=== PATIENT | female | born 1990 | race Hispanic/Latino ===

== ENCOUNTER 2017-08-25 11:09 | Emergency (ER) | payer BC ==
[2017-08-25 11:12] VITALS: BMI 36.3
[2017-08-25 11:15] VITALS: RESP 20
[2017-08-25] MEDS ORDERED: Sodium Chloride 0.9% 1,000 ML IV ONE (12:01)
--- NOTE | 2017-08-25 12:28 | C.PDOC ---
History Of Present Illness 26 y/o female w/o significant PMHx comes in for evaluation of abdominal pain gradually worsening for 4 days. Pain is localized to the suprapubic region and right lower quadrant and associated with nausea. No change in pain with food intake. Otherwise pt denies fever, chills, chest pain, SOB, palpitation, vomiting, diarrhea, dysuria, frequency, incontinence, or blood in the stool or urine. Ambulate to ED for evaluation, not in any apparent distress. Time Seen by Provider: 08/25/17 11:19 Chief Complaint (Nursing): Abdominal Pain History Per: Patient History/Exam Limitations: no limitations Onset/Duration Of Symptoms: Days (x4) Current Symptoms Are (Timing): Still Present Location Of Pain/Discomfort: RLQ, Suprapubic Associated Symptoms: Nausea Past Medical History Reviewed: Historical Data, Nursing Documentation, Vital Signs Vital Signs: Last Vital Signs Temp 99.4 F 08/25/17 11:12 Pulse 74 08/25/17 13:46 Resp 20 08/25/17 13:46 BP 118/79 08/25/17 13:46 Pulse Ox 99 08/25/17 15:57 - Medical History PMH: No Chronic Diseases Surgical History: Tonsillectomy Family History: States: No Known Family Hx - Social History Hx Tobacco Use: No Hx Alcohol Use: No Hx Substance Use: No - Immunization History Hx Tetanus Toxoid Vaccination: No Hx Influenza Vaccination: No Hx Pneumococcal Vaccination: No Review Of Systems Except As Marked, All Systems Reviewed And Found Negative. Constitutional: Negative for: Fever, Chills Cardiovascular: Negative for: Chest Pain Respiratory: Negative for: Shortness of Breath Gastrointestinal: Positive for: Nausea, Abdominal Pain. Negative for: Vomiting , Diarrhea, Hematochezia Genitourinary: Negative for: Dysuria, Frequency, Incontinence, Hematuria Physical Exam - Physical Exam Appears: Well, Non-toxic, No Acute Distress Skin: Normal Color, Warm, No Rash Head: Normacephalic Eye(s): bilateral: PERRL Throat: No Erythema Neck: Trachea Midline, No Midline Cervical Tenderness, No Paracervical Tenderness, Supple Chest: Symmetrical, No Deformity, No Tenderness Cardiovascular: Rhythm Regular, No Murmur Respiratory: No Decreased Breath Sounds, No Accessory Muscle Use, No Rales, No Rhonchi, No Wheezing Gastrointestinal/Abdominal: Soft, Tenderness (to right lower quadrant), No Distention, No Guarding, No Rebound Back: No CVA Tenderness Extremity: Normal ROM, No Deformity, No Swelling Extremity: Bilateral: Atraumatic, Normal Color And Temperature, Normal ROM Neurological/Psych: Oriented x3, Normal Speech ED Course And Treatment - Laboratory Results Result Diagrams: 08/25/17 12:37 08/25/17 12:37 Lab Interpretation: No Acute Changes Urine POC: Negative O2 Sat by Pulse Oximetry: 99 (RA) Pulse Ox Interpretation: Normal - CT Scan/US CT A/P Other Rad Studies (CT/US): Read By Radiologist, Radiology Report Reviewed CT/US Interpretation: Accession No. : [id number]. Patient Name / ID : HARJEET CAMPBELL / [id number]. Exam Date : 08/25/2017 14:58:28 ( Approved ). Study Comment : Sex / Age : F / 26Y. Creator : Gasper Lorenzana MD. Dictator : Gasper Lorenzana MD. Prop Attendant : Music Historian : Gasper Lorenzana MD. Approver2 : Report Date : 08/25/2017 15:51:04. My Comment : . PROCEDURE: CT Abdomen and Pelvis with intravenous contrast. HISTORY: Right lower quadrant abdominal pain. COMPARISON: None. TECHNIQUE: Multiple contiguous axial images were performed through the abdomen and pelvis with the use of intravenous contrast. Subsequently, sagittal and coronal reformatted images were obtained. Radiation dose: Total exam DLP = 1190 mGy-cm. This CT exam was performed using one or more of the following dose reduction techniques: Automated exposure control, adjustment of the mA and/or kV according to patient size, and/or use of iterative reconstruction technique. FINDINGS: LOWER THORAX : 2 millimeter subpleural nodular density along the anterior aspect of the right middle lobe. Mild bibasilar atelectasis. LIVER: Focal area of low attenuation within the medial right hepatic lobe on series 4, image 46 measuring 1.2 centimeters. This is of uncertain clinical etiologyand may represent focal fatty infiltration. Correlation with multiphasic CT or MR may be helpful for further evaluation if clinically indicated. GALLBLADDER AND BILE DUCTS: Unremarkable. PANCREAS: Unremarkable. No gross lesion or ductal dilatation. SPLEEN: Unremarkable. Splenule. ADRENALS: Unremarkable. No mass. KIDNEYS AND URETERS: Unremarkable. No hydronephrosis. No solid mass. VASCULATURE: Unremarkable. No aortic aneurysm. BOWEL: Mild thickening of the medial aspect of the cecum. Underdistended sigmoid colon. Fecal retention in the colon. APPENDIX: Grossly preserved. PERITONEUM: Unremarkable. No free fluid. No free air. LYMPH NODES: Prominent mesenteric lymph nodes seen within the right hemiabdomen and right lower abdomen; for example, on series 4, image 101 in the right ibrahima abdomen measuring 2.5 centimeters and more inferiorly measuring 1.9 centimeters. Multiple prominent lymph nodes adjacent to the cecum. This may represent a prominent mesenteric adenitis. BLADDER: Underdistended urinary bladder. REPRODUCTIVE: Unremarkable. BONES: No acute fracture. OTHER FINDINGS: None. IMPRESSION: 1. Prominent mesenteric lymph nodes seen within the right hemiabdomen and right lower abdomen; for example, on series 4, image 101 in the right ibrahima abdomen measuring 2.5 centimeters and more inferiorly measuring 1.9 centimeters. Multiple prominent lymph nodes adjacent to the cecum. This may represent a prominent mesenteric adenitis. 2. Appendix grossly preserved. 3. Mild thickening of the medial aspect of the cecum. Clinical correlation. 4. Underdistended and or mildly thickened urinary bladder. 5. Focal area of low attenuation within the medial right hepatic lobe on series 4, image 46 measuring 1.2 centimeters. This is of uncertain clinical etiology and may represent focal fatty infiltration. Correlation with multiphasic CT or MR may be helpful for further evaluation if clinically indicated. Additional findings as above. Progress Note: Blood work and urine sent. Patient started on IV fluids and Toradol. Pending CT A/P with IV contrast. Pt was OBS in ED for 5 hours. Delay due to CT delay. On re-evaluation, pt reports moderate improvement in pain. Pt is afebrile, hemodynamicaly stable. Non-toxic. Tolerate Po well in ED. ENT : no acute finidgs. Neck: Supple, (-) meningeal sign. Lungs: CTA B/L, BS equla B/L. CVS: (+)S1S2, reg. Abd: benign, (-) guarding, (-) rebound, (-) localized tenderness. Back: (-) CVA tenderness. Neurologicaly intact. Blood work review, appears normal. CT abd/pelvis review (+) mesenteric adenitis, no acute findings. Pt has clinical findings c/w mesenteric adenitis. Pt advised. ref. to F/u with PMD, GI in 2-3 days for re-evaluation. return to ED if any worsening or new changes. Disposition Counseled Patient/Family Regarding: Studies Performed, Diagnosis, Need For Followup, Rx Given - Disposition Referrals: [facility] [Outside] Isaac Wilkes MD [Staff Provider] - Disposition: HOME/ ROUTINE Disposition Time: 15:57 Condition: STABLE Additional Instructions: Encourage fluids BRAT diet- banana, rice, apple sauce, toast Follow up with PMD, GI in 2-3 days for re-evaluation. return to ED if any worsening or new changes. 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 - Scribe Statement The provider has reviewed the documentation as recorded by the Scribe (Vanessa Hilton) All medical record entries made by the Scribe were at my direction and personally dictated by me. I have reviewed the chart and agree that the record accurately reflects my personal performance of the history, physical exam, medical decision making, and the department course for this patient. I have also personally directed, reviewed, and agree with the discharge instructions and disposition.
[2017-08-25 12:42] LABS: BASO # 0.1 K/uL (0.0-0.2); EOS # 0.2 K/uL (0.0-0.7); EOS % 1.4 % (0.0-4.0); HEMOGLOBIN 13.9 g/dL (11.0-16.0); LYMPH % 25.2 % (20.0-40.0); MEAN CELL VOLUME 81.7 fL (81.0-99.0); MEAN CORPUSCULAR HEMOGLOBIN 28.7 pg (27.0-31.0); MEAN CORPUSCULAR HGB CONC 35.1 g/dL (33.0-37.0); MEAN PLATELET VOLUME 8.2 fL (7.2-11.7); MONO # 0.8 K/uL (0.0-0.8); MONO % 6.6 % (0.0-10.0); NEUT # 7.9 K/uL (1.8-7.0); NEUT % 65.8 % (50.0-75.0); RBC 4.87 Mil/uL (3.80-5.20)
[2017-08-25 12:43] LABS: HCG,QUALITATIVE URINE NEGATIVE (NEGATIVE)
[2017-08-25 12:48] LABS: SQUAMOUS EPITHIAL 7 /hpf (0-5); URINE BACTERIA RARE (<OCC); URINE BILIRUBIN NEGATIVE (NEGATIVE); URINE BLOOD NEGATIVE (NEGATIVE); URINE CLARITY Hazy (Clear); URINE COLOR Yellow (YELLOW); URINE GLUCOSE (UA) NORMAL (Normal); URINE LEUKOCYTE ESTERASE NEG Leu/uL (Negative); URINE PROTEIN NEGATIVE (NEGATIVE); URINE UROBILINOGEN NORMAL mg/dL (0.2-1.0)
[2017-08-25 13:04] LABS: ALB/GLOB RATIO 1.5 (1.0-2.1); ALBUMIN 4.5 g/dL (3.5-5.0); ALT/SGPT 47 U/L (9-52); AST/SGOT 62 U/L (14-36); BLOOD UREA NITROGEN 11 mg/dL (7-17); GFR AFRICAN-AMERICAN > 60; GFR NON-AFRICAN AMERICAN > 60; LIPASE 136 U/L (23-300)
[2017-08-25] MEDS ORDERED: Iodixanol 320 MG/ML 100 ML BOTTLE IV ONE (14:49)
--- NOTE | 2017-08-25 15:52 | CT ---
PROCEDURE: CT Abdomen and Pelvis with intravenous contrast HISTORY: Right lower quadrant abdominal pain COMPARISON: None. TECHNIQUE: Multiple contiguous axial images were performed through the abdomen and pelvis with the use of intravenous contrast. Subsequently, sagittal and coronal reformatted images were obtained. Radiation dose: Total exam DLP = 1190 mGy-cm. This CT exam was performed using one or more of the following dose reduction techniques: Automated exposure control, adjustment of the mA and/or kV according to patient size, and/or use of iterative reconstruction technique. FINDINGS: LOWER THORAX: 2 millimeter subpleural nodular density along the anterior aspect of the right middle lobe. Mild bibasilar atelectasis. LIVER: Focal area of low attenuation within the medial right hepatic lobe on series 4, image 46 measuring 1.2 centimeters. This is of uncertain clinical etiologyand may represent focal fatty infiltration. Correlation with multiphasic CT or MR may be helpful for further evaluation if clinically indicated. GALLBLADDER AND BILE DUCTS: Unremarkable. PANCREAS: Unremarkable. No gross lesion or ductal dilatation. SPLEEN: Unremarkable. Splenule. ADRENALS: Unremarkable. No mass. KIDNEYS AND URETERS: Unremarkable. No hydronephrosis. No solid mass. VASCULATURE: Unremarkable. No aortic aneurysm. BOWEL: Mild thickening of the medial aspect of the cecum. Underdistended sigmoid colon. Fecal retention in the colon. APPENDIX: Grossly preserved. PERITONEUM: Unremarkable. No free fluid. No free air. LYMPH NODES: Prominent mesenteric lymph nodes seen within the right hemiabdomen and right lower abdomen; for example, on series 4, image 101 in the right ibrahima abdomen measuring 2.5 centimeters and more inferiorly measuring 1.9 centimeters. Multiple prominent lymph nodes adjacent to the cecum. This may represent a prominent mesenteric adenitis. BLADDER: Underdistended urinary bladder. REPRODUCTIVE: Unremarkable. BONES: No acute fracture. OTHER FINDINGS: None. IMPRESSION: 1. Prominent mesenteric lymph nodes seen within the right hemiabdomen and right lower abdomen; for example, on series 4, image 101 in the right ibrahima abdomen measuring 2.5 centimeters and more inferiorly measuring 1.9 centimeters. Multiple prominent lymph nodes adjacent to the cecum. This may represent a prominent mesenteric adenitis. 2. Appendix grossly preserved. 3. Mild thickening of the medial aspect of the cecum. Clinical correlation. 4. Underdistended and or mildly thickened urinary bladder. 5. Focal area of low attenuation within the medial right hepatic lobe on series 4, image 46 measuring 1.2 centimeters. This is of uncertain clinical etiology and may represent focal fatty infiltration. Correlation with multiphasic CT or MR may be helpful for further evaluation if clinically indicated. Additional findings as above.
[2017-08-25 16:32] VITALS: BP 119/77; PULSE 87; TEMP 98.6
[2017-08-25 16:35] VITALS: O2SAT 99
== END 2017-08-25 16:30 | disposition home or self-care (01) ==
LOC: C.ER 11:09
DX: I88.0 Nonspecific mesenteric lymphadenitis (principal)
CPT/HCPCS: 74177; 80053; 81001; 83690; 84703; 85025; 85610; 85730; 96361; 96374; 99285; J1885; J7030; Q9967